=== PATIENT | male | born 1990 | race Hispanic/Latino ===

== ENCOUNTER 2019-06-22 20:49 | Emergency (ER) | payer SELFPAY ==
[2019-06-22] MEDS ORDERED: METHYLPREDNISOLONE SOD SUCC 125MG/2ML VIAL ONE (21:14)
[2019-06-22] MEDS ORDERED: ACETAMINOPHEN EXTRA STRENGTH 500 MG TABLET ONE (21:15)
[2019-06-22] MEDS ORDERED: SODIUM CHLORIDE 0.9% 1000ML 1,000 ML IV ONE (21:15)
[2019-06-22] MEDS ORDERED: DIPHENHYDRAMINE HCL 25 MG CAPSULE ONE (22:06)
[2019-06-22] MEDS ORDERED: FAMOTIDINE 20MG TAB 20 MG TAB ONE (22:06)
== END 2019-06-22 23:19 | disposition home or self-care (01) ==
LOC: EDH 20:49
DX: L24.9 Irritant contact dermatitis, unspecified cause (principal)
CPT/HCPCS: 87804 ×2; 96374; 99284; J2930; J7030; Q0163